=== PATIENT | male | born 1975 | race Caucasian/White ===

== ENCOUNTER 2024-10-10 11:21 | Emergency (ER) | payer MEDICAID ==
[~2024-10-10] VITALS: Ht 175.3 cm; Wt 95.0 kg
[2024-10-10] MEDS ORDERED: SODIUM CHLORIDE 0.9% 1,000 ML IV ONE (11:30)
[2024-10-10 11:34] LABS: BASOPHILS 0.8 % (0-2); EOSINOPHILS 2.8 % (0-6); HEMATOCRIT 40.3 % (35.0-50.0); HEMOGLOBIN 14.3 g/dL (12.0-18.0); LYMPHOCYTES 45.8 % (24-44); MCH 31.4 (27-36); MCHC 35.5 g/dl (30-36); MCV 88.4 fl (81-99); NEUTROPHILS 43.6 % (39-80); PLATELET COUNT 277 K/uL (140-440); RBC 4.55 M/ul (4.3-5.7); RDW 13.3 (10.5-15.0)
[2024-10-10 11:45] LABS: ALBUMIN 4.1 g/dL (3.4-5.0); ANION GAP 9.9 (7-21); BILIRUBIN, TOTAL 0.5 mg/dL (0.2-1.0); BUN/CREATININE RATIO 18.26 (6.0-28.6); CALCIUM 9.3 mg/dL (8.5-10.1); CREATININE, SERUM 1.15 mg/dL (0.70-1.30); POTASSIUM 4.9 mmol/L (3.5-5.1); PROTEIN, TOTAL 8.2 g/dL (6.4-8.2)
[2024-10-10] MEDS ORDERED: ondansetron HCL 4 MG/2 ML VIAL IV ONE (11:45)
--- OUTSIDE RECORDS SUMMARY | 2024-10-10 11:48 | XMS ---
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 E.DAgustin VISIT COUNT (12 MO.) 2 [facility] 1 JUAN Denise 1 Nile Fairchild [address] [place], [place] [address]Praveen_ TOTAL 6 NOTE: Visits indicate total known visits. ED/UCC VISIT TRACKING (12 MO.) 10/10/2024 11:22 [facility] Reyes TYPE: Emergency COMPLAINT: - ALTERED MENTAL STATUS 06/30/2024 02:13 [facility] TYPE: Emergency DIAGNOSES: - Headache, unspecified - Other chronic pain - [place] am 06/03/2024 03:35 [facility] TYPE: Emergency DIAGNOSES: 95666. [place] [phone]. Nontraumatic intracranial hemorrhage, unspecified 05/23/2024 14:33 [facility] [place] TYPE: Emergency COMPLAINT: - MED STS HEADACHE DIAGNOSES: - Headache, unspecified 05/20/2024 08:26 [facility] TYPE: Emergency DIAGNOSES: - Acute sinusitis, unspecified - Cervicogenic headache - Left lower quadrant pain - Other specified bacterial agents as the cause of diseases classified elsewhere - Unspecified abdominal pain - Abadominal pain; Headache 05/09/2024 10:29 [facility] TYPE: Psychiatric Emergency DIAGNOSES: - Alcohol abuse, uncomplicated - Major depressive disorder, recurrent severe without psychotic features - SI INPATIENT VISIT TRACKING (12 MO.) 06/03/2024 03:35 [facility] TYPE: Neuro Surgery DIAGNOSES: 37222. Nontraumatic acute subdural hemorrhage 93618. Nontraumatic chronic subdural hemorrhage 58269. Nontraumatic intracranial hemorrhage, unspecified - Nontraumatic acute subdural hemorrhage - Nontraumatic chronic subdural hemorrhage - Nontraumatic intracranial hemorrhage, unspecified 05/23/2024 17:11 [facility] TYPE: Neuro Surgery DIAGNOSES: 64889. Traumatic subdural hemorrhage with loss of consciousness status unknown, initial encounter 17570. spontaneous SDH 69128. Cerebral infarction, unspecified 57104. Nontraumatic acute subdural hemorrhage 63055. Nontraumatic chronic subdural hemorrhage 43805. Type 2 diabetes mellitus without complications - Cerebral infarction, unspecified - Nontraumatic acute subdural hemorrhage - Nontraumatic chronic subdural hemorrhage - Type 2 diabetes mellitus without complications [email or web address]
[2024-10-10 11:52] LABS: BILIRUBIN, URINE NEGATIVE (negative); BLOOD/HGB, URINE NEGATIVE (Negative); KETONE, URINE NEGATIVE (Negative); LEUK ESTERASE, URINE NEGATIVE (negative); NITRITE, URINE NEGATIVE (negative)
[2024-10-10 12:07] LABS: AMPHETAMINES, URINE NEGATIVE (NEGATIVE); BARBITURATES, URINE NEGATIVE (NEGATIVE); BENZODIAZEPINE, URINE NEGATIVE (NEGATIVE); BUPRENORPHINE, URINE NEGATIVE (NEGATIVE); CANNABINOID, URINE POSITIVE (NEGATIVE); COCAINE, URINE NEGATIVE (NEGATIVE); ECSTASY, URINE NEGATIVE (NEGATIVE); FENTANYL, URINE NEGATIVE (NEGATIVE); METHADONE, URINE NEGATIVE (NEGATIVE); OPIATES, URINE NEGATIVE (NEGATIVE); OXYCODONE, URINE NEGATIVE (NEGATIVE); PHENCYCLIDINE, URINE NEGATIVE (NEGATIVE)
[2024-10-10] MEDS ORDERED: ACETAMINOPHEN 500 MG TAB PO ONE (13:15)
[2024-10-10 13:53] VITALS: BP 150/97
--- NOTE | 2024-10-10 14:50 | EKG ---
[facility] [address] [place] [address] Signed Normal sinus rhythm Normal ECG No previous ECGs available Confirmed by Josephine Cheney MD () on 10/10/2024 2:50:12 PM Electronically Signed By: JOSEPHINE CHENEY MD 10/10/24 1450 PATIENT NAME: MAGGY RAZA Electrocardiogram DATE OF : 77 PHYSICIAN: JOSEPHINE CHENEY MD REPORT #: [id number] REPORT IS CONFIDENTIAL AND NOT TO BE RELEASED WITHOUT AUTHORIZATION
== END 2024-10-10 13:53 | disposition left against medical advice (07) ==
LOC: ED 11:21
PROVIDERS: Emergency Medicine
DX: R41.82 Altered mental status, unspecified (principal); F10.129 Alcohol abuse with intoxication, unspecified; F12.90 Cannabis use, unspecified, uncomplicated; Z53.29 Procedure and treatment not carried out because of patient's decision for other reasons
CPT/HCPCS: 36415; 70450; 80053; 80307; 81003; 85025; 93005; 93010; 96361; 96374; 99285-25; A9270; G0480; J2405; J7030